=== PATIENT | female | born 1980 | race Two or more races ===

== ENCOUNTER → 2020-07-20 | Outpatient (CLI) | payer BC ==
[~2020-07-20] MED LIST: ACET-2065 PO; ALBU1.25 NEB; ALBU8.5H8 INH; DICY20TA4 PO; IBUP-1223 PO; PANT40TA3 PO; Vitamin D3 PO; breo INH
[2020-07-20 14:49] LABS: BASOPHILS % (AUTO) 1 % (0-1); EOSINOPHILS % (AUTO) 2 % (1-7); LYMPHOCYTES % (AUTO) 24 % (22-44); MEAN CORPUSCULAR HGB CONC 33.3 g/dL (32.4-35.8); MEAN PLATELET VOLUME 8.6 fL (7.4-10.4); MONOCYTES % (AUTO) 5 % (2-9); NEUTROPHILS % (AUTO) 69 % (42-75); PLATELET COUNT 343 x10^3/uL (130-400); RED BLOOD COUNT 3.94 x10^6/uL (3.82-5.3); RED CELL DISTRIBUTION WIDTH 16.3 % (9.6-15.2)
[2020-07-20 14:52] LABS: MD NO
[2020-07-20 14:58] LABS: ANION GAP 7 mmol/L (5-15); CALCIUM 8.7 mg/dL (8.5-10.1); CHLORIDE 108 mmol/L (98-107); CREATININE 0.75 mg/dL (0.55-1.02)
== END | disposition home or self-care (01) ==
LOC: STAR 13:34 → MERGE 14:00
PROVIDERS: ATTEND Obstetrics & Gynecology
DX: Z01.812 Encounter for preprocedural laboratory examination (principal); Z20.822 Contact with and (suspected) exposure to COVID-19
CPT/HCPCS: 36415; 80048; 84702; 85025; U0003

== ENCOUNTER 2020-07-24 05:20 | Day surgery (SDC) | payer BC ==
[~2020-07-24] VITALS: Ht 157.5 cm; Wt 108.8 kg
[2020-07-24 06:05] VITALS: BP 152/94
[2020-07-24 06:11] LABS: HCG UR SG 1.025 (1.003-1.030)
[2020-07-24] MEDS ORDERED: CHLORHEXIDINE 15 ML UDC PO ONE (06:30)
[2020-07-24] MEDS ORDERED: LACTATED RINGERS 1,000 ML IV SCH (06:30)
[2020-07-24] MEDS ORDERED: MIDAZOLAM 1 MG/ML, 2ML ONE (06:56)
[2020-07-24] MEDS ORDERED: FENTANYL PF 100 MCG/2ML ONE ×2 (06:56→09:27)
[2020-07-24] MEDS ORDERED: HYDROmorphone 1 MG/ML, 1ML INJ ONE (06:57)
[2020-07-24] MEDS ORDERED: BUPIVACAINE/PF 0.25% ONE (06:58)
[2020-07-24] MEDS ORDERED: FLUORESCEIN SODIUM 500 MG/5 ML ONE (06:59)
[2020-07-24] MEDS ORDERED: EPINEPHRINE 1 MG/ML, 1ML ONE (06:59)
[2020-07-24] MEDS ORDERED: LABETALOL 5MG/ML, 20ML IV PRN (07:30)
[2020-07-24] MEDS ORDERED: EPHEDRINE 50 MG/ML, 1ML IVPush PRN (07:30)
[2020-07-24] MEDS ORDERED: METOCLOPRAMIDE 5 MG/ML, 2ML IVPush PRN (07:30)
[2020-07-24] MEDS ORDERED: METOPROLOL 1 MG/ML, 5ML IV PRN (07:30)
[2020-07-24] MEDS ORDERED: HYDROmorphone 1 MG/ML, 1ML INJ IVPush PRN (07:30)
[2020-07-24] MEDS ORDERED: hydrALAzine 20 MG/ML, 1ML IV PRN (07:30)
[2020-07-24] MEDS ORDERED: HALOPERIDOL 5 MG/ML IV PRN (07:30)
[2020-07-24] MEDS ORDERED: ONDANSETRON 2MG/ML, 2ML IVPush PRN (07:30)
[2020-07-24] MEDS ORDERED: MEPERIDINE/PF 25MG/0.5ML IVPush PRN (07:30)
[2020-07-24] MEDS ORDERED: PROMETHAZINE 25 MG/ML, 1ML IVPush PRN (07:30)
[2020-07-24] MEDS ORDERED: ALBUTEROL SULFATE 2.5 MG/3 ML NPPB PRN (07:30)
[2020-07-24] MEDS ORDERED: DIAZEPAM 5 MG/ML, 2ML IVPush PRN (07:30)
[2020-07-24] MEDS ORDERED: ACETAMINOPHEN 325 MG TABLET PO PRN (07:30)
[2020-07-24] MEDS ORDERED: DIPHENHYDRAMINE 50 MG/ML, 1ML IVPush PRN (07:30)
[2020-07-24] MEDS ORDERED: DEXAMETHASONE 4 MG/ML, 5ML ONE (07:33)
[2020-07-24] MEDS ORDERED: CEFAZOLIN 1,000 MG ONE (07:33)
[2020-07-24] MEDS ORDERED: PHENYLEPHRINE 10 MG/ML ONE (07:33)
[2020-07-24] MEDS ORDERED: PROPOFOL 10 MG/ML, 20ML ONE (07:33)
[2020-07-24] MEDS ORDERED: GLYCOPYRROLATE 0.2MG/1ML, 5ML ONE (07:33)
[2020-07-24] MEDS ORDERED: NEOSTIGMINE 1 MG/ML, 10ML ONE (07:33)
[2020-07-24] MEDS ORDERED: ROCURONIUM 10 MG/ML,10ML ONE (07:33)
[2020-07-24] MEDS ORDERED: ONDANSETRON 2MG/ML, 2ML ONE (07:33)
[2020-07-24] MEDS ORDERED: ACETAMINOPHEN 650 MG/20.3 ML UDC ONE (09:27)
[2020-07-24] MEDS ORDERED: OXYcodone 5 MG/5 ML ORAL.SOL UDC ONE (09:27)
[2020-07-24] MEDS ORDERED: DIAZEPAM 5 MG/ML, 2ML ONE (09:28)
[2020-07-24] MEDS: OXYcodone 5 MG/5 ML ORAL.SOL UDC PO PRN ×2 (09:40→11:27)
[2020-07-24] MEDS: FENTANYL PF 100 MCG/2ML IV PRN ×2 (09:41→09:58)
== END 2020-07-24 11:27 | disposition home or self-care (01) ==
LOC: OUT 05:20 → EDBD 07:30 → OUT 11:27
PROVIDERS: ATTEND Obstetrics & Gynecology
DX: N93.8 Other specified abnormal uterine and vaginal bleeding (principal); D25.2 Subserosal leiomyoma of uterus; N80.0 Endometriosis of uterus; N88.8 Other specified noninflammatory disorders of cervix uteri; E66.01 Morbid (severe) obesity due to excess calories; K21.9 Gastro-esophageal reflux disease without esophagitis; G43.909 Migraine, unspecified, not intractable, without status migrainosus; J45.909 Unspecified asthma, uncomplicated; Z88.5 Allergy status to narcotic agent; Z88.8 Allergy status to other drugs, medicaments and biological substances; Z98.51 Tubal ligation status; Z68.41 Body mass index [BMI] 40.0-44.9, adult; Z98.890 Other specified postprocedural states; Z79.899 Other long term (current) drug therapy; Z72.89 Other problems related to lifestyle
CPT/HCPCS: 58552; 81025; 88307; J0171; J1170; J2250; J3010; J3360; J7120; J0690; J1100; J2405; J2704; J2710; J2370